=== PATIENT | female | born 1985 | race American Indian/Alaskan Native ===

== ENCOUNTER 2016-11-21 12:13 | Outpatient (CLI) | payer BC, MEDICAID ==
--- NOTE | 2016-11-21 13:19 | XRay Report ---
AP CHEST: HISTORY: Dyspnea, orthopnea AP view of the chest demonstrates a normal mediastinal and cardiac contour with clear lungs and normal bony and soft tissue structures. IMPRESSION: Unremarkable AP chest.
== END 2016-11-21 12:14 | disposition home or self-care (01) ==
LOC: XRAY 12:13
DX: R06.02 Shortness of breath (principal); R06.01 Orthopnea
CPT/HCPCS: 71010

== ENCOUNTER 2017-01-20 06:43 | Inpatient (IN) | payer BC, MEDICAID ==
[2017-01-20] MEDS ORDERED: ePHEDrine SULFATE IV PRN ×2 (09:28→17:22)
[2017-01-20] MEDS ORDERED: MINERAL OIL PO PRN (09:28)
[2017-01-20] MEDS ORDERED: BRETHINE SUB-Q PRN (09:28)
[2017-01-20] MEDS ORDERED: XYLOCAINE 2% INFILTRATI ONE (09:28)
[2017-01-20] MEDS ORDERED: BRETHINE IVP PRN (09:28)
[2017-01-20] MEDS ORDERED: LACTATED RINGERS 1,000 ML ONE (09:34)
[2017-01-20] MEDS ORDERED: PITOCin/NS 20 UNIT/1000ML DRIP 20 UNITS/1,000 ML BAG IV SCH (10:00)
[2017-01-20] MEDS ORDERED: LACTATED RINGERS 1,000 ML IV SCH (10:00)
--- NOTE | 2017-01-20 10:08 | History and Physical Report ---
History of Present Illness Date of examination: 01/20/17 Date of admission: 01/20/17 09:05 Chief complaint: Leaking of clear fluid from vagina since 04:30 today. History of present illness: 31 year old at 39 weeks, 1 day gestation presents to L&D with complaint of leaking of clear fluid from vagina since 04:30 this morning. She states contractions started at 03:30 this morning. She denies vaginal bleeding. She reports active movement. 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 denies: smoking, alcohol abuse, prescription drug abuse, IV drug use - Obstetrical History Expected Date of Delivery: 01/26/17 Actual Gestation: 39 Week(s) 1 Day(s) : 2 Para: 0 Hx # Term Pregnancies: 0 Number of Pregnancies: 0 Spontaneous Abortions: 0 Induced : 1 Number of Living Children: 0 Medications and Allergies Allergies Allergy/AdvReac Type Severity Reaction Status Date / Time No Known Allergies Allergy Verified 08/24/15 06:17 Active Meds: Active Medications Lactated Ringer's (Lactated Ringers) 1,000 mls @ 125 mls/hr IV DIRECT YULISA Oxytocin/Sodium Chloride (Pitocin/Ns 20 Unit/1000ml Drip) 20 units in 1,000 mls @ 125 mls/hr IV DIRECT YULISA Mineral Oil (Mineral Oil) 30 ml PO QHS PRN PRN Reason: Constipation Review of Systems Constitutional: no fever, no chills, no malaise Eyes: deferred Ears, nose, mouth and throat: deferred Cardiovascular: no chest pain, no edema, no shortness of breath, no leg edema Respiratory: no cough Breasts: deferred Gastrointestinal: no nausea, no vomiting, no diarrhea, no constipation Genitourinary: leakage of fluid, contractions, no vaginal bleeding, no vaginal discharge, no genital sores Rectal Exam: deferred Musculoskeletal: low back pain Integumentary: no rash, no lesions Neurological: no headaches - Vital Signs Vital signs: Vital Signs Pulse Pulse Ox 69 97 01/20/17 07:03 01/20/17 07:03 Temp Pulse Resp BP Pulse Ox 97.3 F L 68 18 104/71 97 01/20/17 07:11 01/20/17 09:35 01/20/17 07:11 01/20/17 09:35 01/20/17 07:58 - Physical Exam Breasts: Positive: deferred Cardiovascular: Regular rate, No murmurs Lungs: Positive: Clear to auscultation Abdomen: Positive: normal appearance, soft. Negative: distention, tenderness, guarding Genitourinary (Female): Positive: normal external genitalia. Negative: perineal /vulvar lesions Vagina: Positive: other (Positive pooling, positive fern test) Cervix: Positive: discharge (Clear fluid seen at cervix and in posterior fornix of vagina; fern positive) Uterus: Positive: enlarged. Negative: tender Anus/Rectum: Positive: hemorrhoids Extremities: Positive: normal. Negative: edema - Obstetrical FHR: category 1 Uterine Contraction Monitor Mode: External Cervical Dilatation: 0.5 Cervical Effacement Percentage: 60 station: -1 Uterine Contraction Frequency (min): every 2-3 minutes Results All other labs normal. Assessment and Plan at 39 weeks, 1 day gestation. Spontaneous rupture of membranes. GBS negative. Uterine contractions/probable early labor. Plan: Admit patient. Limit vaginal exams. Patient may ambulate. Anticipate .
--- NOTE | 2017-01-20 11:35 | Event Note ---
Date: 01/20/17 Patient reports worsening contractions and requests to have her cervix checked. SVE 290/0. Patient instructed regarding breathing techniques to cope with contractions. Contractions are every 2-3 minutes. Uterus palpates soft between contractions. Amniotic fluid remains clear. Category 1 heart rate tracing. Maternal VSS.
[2017-01-20 12:35] LABS: Basophils % (Auto) 0.5 % (0.0-1.8); Eosinophils % (Auto) 0.4 % (0.0-4.3); Hematocrit 39.8 % (30.3-42.9); Hemoglobin 12.9 gm/dl (10.1-14.3); Mean Corpuscular HGB Conc 32 % (30-34); Mean Corpuscular Hemoglobin 31 pg (28-32); Mean Corpuscular Volume 96 fl (79-97); Platelet Count 180 K/mm3 (140-440); Red Blood Count 4.13 M/mm3 (3.65-5.03); Red Cell Distribution Width 13.5 % (13.2-15.2); White Blood Count 13.5 K/mm3 (4.5-11.0)
[2017-01-20] MEDS ORDERED: PITOCin/NS 30 UNIT/500ML 30,000 MILLIUNITS/500 ML BAG IV ONE (14:30)
--- NOTE | 2017-01-20 14:52 | Event Note ---
Date: 01/20/17 Discussed with patient risks and benefits of Pitocin augmentation of labor. Will augment labor with Pitocin. Reassuring heart rate tracing.
[2017-01-20] MEDS ORDERED: SUBLIMAZE IV ONE (15:10)
[2017-01-20] MEDS ORDERED: PITOCin/NS 30 UNIT/500ML 30 UNITS/500 ML BAG IV SCH (16:09)
[2017-01-20] MEDS ORDERED: ePHEDrine SULFATE ONE (16:42)
[2017-01-20] MEDS ORDERED: NARCAN 2 MG/2 ML IV PRN (17:22)
--- NOTE | 2017-01-20 17:22 | Anesthesia Consultation ---
Anesthesia Consult and Med Hx Date of service: 01/20/17 - Airway Anesthetic Teeth Evaluation: Good ROM Head & Neck: Adequate Mental/Hyoid Distance: Adequate Mallampati Class: Class II Intubation Access Assessment: Probably Good - Pulmonary Exam CTA: Yes - Cardiac Exam Cardiac Exam: RRR - Pre-Operative Health Status ASA Pre-Surgery Classification: ASA2 Proposed Anesthetic Plan: Epidural - Pulmonary Hx Asthma: No COPD: No Hx Pneumonia: No - Cardiovascular System Hx Hypertension: No - Central Nervous System Hx Seizures: No Hx Psychiatric Problems: No - Endocrine Hx Renal Disease: No Hx End Stage Renal Disease: No Hx Hypothyroidism: No Hx Hyperthyroidism: No - Hematic Hx Anemia: Yes Hx Sickle Cell Disease: No - Other Systems Hx Alcohol Use: No
[2017-01-20] MEDS ORDERED: fentaNYL-BUPIV 2 MCG/ML-0.125% 200 MCG/100 ML BAG EPIDURAL SCH (18:00)
--- NOTE | 2017-01-20 18:28 | Event Note ---
Date: 01/20/17 Pitocin turned off at 18:05 due to a few late appearing heart rate decelerations noted per monitor. Pitocin had been at 4 milliunits per minute. Now off. Patient positioned in left lateral position and O2 applied per face mask. SVE C/C/+1. Will expedite delivery.
[2017-01-20] MEDS ORDERED: TYLENOL PO ONE (20:19)
[2017-01-20] MEDS ORDERED: POLYCILLIN/NS 2 GM/100 ML 2 GM/100 ML BAG IV ONE (20:20)
[2017-01-20] MEDS ORDERED: TYLENOL PO PRN (22:42)
[2017-01-20] MEDS ORDERED: LANSINOH TP PRN ×2 (22:42)
[2017-01-20] MEDS ORDERED: MILK OF MAGNESIA PO PRN (22:42)
[2017-01-20] MEDS ORDERED: NORCO 5/325 PO ONE (22:55)
--- NOTE | 2017-01-20 22:56 | Procedure Note ---
OB Delivery Note - Delivery Date of Delivery: 01/20/17 Surgeon: SEAN SNIDER Estimated blood loss: other (250 cc) - Vaginal Delivery position: OA Delivery augmentation: pitocin Delivery monitor: external uterine Delivery placenta: spontaneous Delivery cord: 3 umbilical vessels Episiotomy: none Delivery laceration: 2nd degree Delivery comments: Spontaneous vaginal delivery of liveborn male over 2nd degree perineal laceration at 2114. Epidural anesthsia. Inant weight 6 lbs 2 oz. Apgars 8/9. Spontaneous delivery of inact placenta and membranes by elam mechanism. EBL 300 cc. Fundus firm and midline. 2nd degree perineal laceration repaired with 2- o vicrl in usual sterile manner. Mother and baby are stable in birthing room. Mom plans to breastfeed.
[2017-01-20] MEDS ORDERED: SODIUM CHLORIDE FLUSH SYRINGE 10 ML IV PRN (23:00)
[2017-01-21] MEDS: MOTRIN PO SCH ×4 (00:50→23:41)
[2017-01-21] MEDS: NORCO 5/325 PO PRN ×3 (05:16→16:10)
[2017-01-21] MEDS: TUCKS PAD TP PRN (05:17)
--- NOTE | 2017-01-21 10:03 | Progress Note ---
Assessment and Plan A: day 1 S/P . P: Plan for discharge tomorrow. Subjective - Subjective Date of service: 01/21/17 Principal diagnosis: day 1 S/P Interval history: Doing well. and bottlefeeding. Tolerating a regular diet; no nausea or vomiting. Ambulating well and voiding without difficulty. Patient denies headache, abdominal pain, pelvic pain, heavy vaginal bleeding, or clots. Patient reports: appetite normal, voiding normally, pain well controlled, ambulating normally [place]: doing well Objective - Vital Signs Latest vital signs: Vital Signs Temp Pulse Resp BP Pulse Ox 01/21/17 08:30 98.4 F 89 20 99/54 01/21/17 04:30 98.2 F 74 18 113/56 01/20/17 23:50 99.2 F 72 18 118/61 01/20/17 23:22 79 97 01/20/17 23:17 91 H 97 01/20/17 23:12 75 97 01/20/17 23:11 14 01/20/17 23:07 73 98 01/20/17 23:02 82 96 01/20/17 22:59 76 113/74 01/20/17 22:57 78 97 01/20/17 22:52 68 97 01/20/17 22:47 67 98 01/20/17 22:45 98.6 F 71 14 112/65 98 01/20/17 22:44 67 112/65 01/20/17 22:42 77 97 01/20/17 22:31 75 92 01/20/17 22:27 69 99 01/20/17 22:22 78 98 01/20/17 22:17 69 98 01/20/17 22:14 71 105/58 01/20/17 22:12 70 98 01/20/17 22:07 76 99 01/20/17 22:04 72 88 01/20/17 22:02 72 99 01/20/17 21:58 70 110/58 01/20/17 21:57 68 97 01/20/17 21:52 73 97 01/20/17 21:47 74 97 01/20/17 21:43 74 103/58 01/20/17 21:42 73 97 01/20/17 21:37 78 98 01/20/17 21:32 79 98 01/20/17 21:29 75 104/57 17 21:27 79 97 17 21:26 83 L 01/20/17 21:06 80 L 01/20/17 20:59 87 118/57 01/20/17 20:43 142 H 102/58 17 20:38 86 91 17 20:28 102 H 112/66 01/20/17 20:20 92 01/20/17 20:14 83 121/56 01/20/17 20:13 100.1 F H 83 12 121/56 98 01/20/17 20:07 37 L 0 L 01/20/17 20:06 73 81 L 01/20/17 20:02 60 81 L 01/20/17 19:59 93 H 116/59 01/20/17 19:57 101 H 99 01/20/17 19:52 102 H 98 01/20/17 19:47 96 H 98 01/20/17 19:43 107 H 119/60 01/20/17 19:42 91 H 99 01/20/17 19:37 79 100 01/20/17 19:32 78 100 17 19:29 76 125/58 17 19:27 76 100 17 19:22 79 100 01/20/17 19:17 75 100 01/20/17 19:16 99.7 F H 75 16 127/59 98 01/20/17 19:14 71 127/59 17 19:12 76 117/67 98 01/20/17 19:00 74 100 17 18:58 71 105/57 17 18:55 64 100 17 18:50 62 100 17 18:45 65 100 17 18:43 62 106/58 17 18:40 85 100 17 18:35 97 H 100 17 18:30 75 100 17 18:28 80 101/57 17 18:25 68 100 17 18:20 76 100 17 18:15 65 98 17 18:13 65 99/53 17 18:10 72 99 01/20/17 18:05 72 99 01/20/17 18:04 68 89 01/20/17 18:00 74 98 01/20/17 17:55 72 99 01/20/17 17:50 69 99 01/20/17 17:45 69 96 01/20/17 17:42 74 111/60 01/20/17 17:37 67 110/56 01/20/17 17:34 76 99 01/20/17 17:32 80 109/56 01/20/17 17:28 70 109/57 01/20/17 17:21 71 111/65 01/20/17 17:19 71 111/62 01/20/17 17:17 69 105/63 01/20/17 17:16 71 108/57 01/20/17 17:14 72 127/60 01/20/17 17:11 85 116/56 01/20/17 17:10 72 107/52 01/20/17 17:07 82 106/57 01/20/17 16:57 68 117/58 01/20/17 16:43 76 117/69 01/20/17 16:27 65 119/58 01/20/17 16:13 68 132/62 01/20/17 15:58 70 117/66 01/20/17 15:42 67 109/59 01/20/17 15:30 97.8 F 69 18 111/67 01/20/17 15:28 69 111/67 01/20/17 15:13 82 118/74 01/20/17 14:57 69 113/63 01/20/17 14:42 77 113/59 01/20/17 14:27 73 119/61 01/20/17 13:45 98.0 F 65 18 111/72 01/20/17 11:30 97.6 F 65 18 111/72 01/20/17 10:04 65 111/72 Intake and Output 01/20/17 01/21/17 01/21/17 22:59 06:59 14:59 Intake Total 1360 120 120 Output Total 600 800 Balance 1360 -480 -680 Intake: IV 1300 Lactated Ringers 1,000 ml 700 @ 125 mls/hr IV DIRECT YULISA Rx#:[id number] PITOCin/NS 20 UNIT/1000ML 300 DRIP 20 units In 1,000 ml @ 125 mls/hr IV DIRECT [facility] Rx#:[id number] PITOCin/NS 30 UNIT/500ML 200 30 units In 500 ml @ 2 MILLIUNITS/MIN 2 mls/hr IV TITR [facility] Rx#:[id number] POLYCILLIN/NS 2 GM/100 ML 100 2 gm In 100 ml @ 100 mls /hr IV ONCE ONE Rx#: [id number] Oral 60 120 120 Output: Urine 600 800 Void 600 800 Other: Total, Intake Amount 60 120 120 Total, Output Amount 600 800 Estimated Blood Loss 250 - Exam Breasts: Present: deferred Cardiovascular: Present: Regular rate, No murmurs Lungs: Present: Clear to auscultation Abdomen: Present: normal appearance, soft. Absent: distention, tenderness, guarding Uterus: Present: normal, firm, fundal height below umbilicus Extremities: Present: normal. Absent: edema - Labs Labs: Abnormal lab results 01/20/17 Range/Units 11:00 WBC 13.5 H (4.5-11.0) K/mm3 Lymph % (Auto) 10.8 L (13.4-35.0) % [place] % (Auto) 8.2 H (0.0-7.3) % [place] # 1.1 H (0.0-0.8) K/mm3 Seg Neutrophils % 80.1 H (40.0-70.0) % Seg Neutrophils # 10.8 H (1.8-7.7) K/mm3
[2017-01-21 11:11] LABS: Hematocrit 30.1 % (30.3-42.9); Hemoglobin 9.9 gm/dl (10.1-14.3)
[2017-01-21] MEDS: PRENATAL VITAMIN PO SCH (15:42)
[2017-01-21] MEDS: COLACE PO SCH ×2 (15:42→23:50)
[2017-01-22] MEDS: MOTRIN PO SCH ×2 (05:31→12:58)
[2017-01-22] MEDS ORDERED: BOOSTRIX IM ONE (06:00)
[2017-01-22] MEDS: TUCKS PAD TP PRN (08:39)
--- NOTE | 2017-01-22 09:27 | Progress Note ---
Assessment and Plan A; PPD #2 - stable P; Discharge home today Subjective - Subjective Date of service: 01/22/17 Principal diagnosis: day 2 S/P Patient reports: appetite normal [place]: doing well Objective - Vital Signs Latest vital signs: Vital Signs Temp Pulse Resp BP 01/22/17 07:47 98.5 F 74 20 96/60 01/22/17 00:45 98.5 F 74 20 101/55 01/21/17 18:16 18 01/21/17 16:34 98.7 F 83 20 107/61 01/21/17 16:10 18 01/21/17 12:40 98.6 F 76 20 95/58 Intake and Output 01/21/17 01/22/17 01/22/17 22:59 06:59 14:59 Intake Total 420 240 Balance 420 240 Intake: Oral 240 Intake, Free Water 180 240 Other: Total, Intake Amount 240 # Voids Void 1 1 - Exam Breasts: Present: deferred Cardiovascular: Present: Regular rate Lungs: Present: Clear to auscultation Abdomen: Present: soft Vulva: both: normal Uterus: Present: fundal height below umbilicus Deep Tendon Reflex Grade: Normal +2 - Labs Labs: Abnormal lab results 01/21/17 Range/Units 10:45 Hgb 9.9 L D (10.1-14.3) gm/dl Hct 30.1 L D (30.3-42.9) %
--- NOTE | 2017-01-22 09:28 | Discharge Summary ---
Providers - Providers Date of Admission: 01/20/17 09:05 Date of discharge: 01/22/17 Attending physician: KELBY HYDE MD Primary care physician: KELBY HYDE MD Hospitalization Reason for admission: active labor Delivery: Laceration: 2nd degree Other procedures: none complications: none Discharge diagnosis: IUP at term delivered [place] baby: male Condition at discharge: Good Disposition: DC-01 TO HOME OR SELFCARE Plan - Provider Discharge Summary Activity: routine, no sex for 6 weeks, no strenuous exercise Diet: routine Instructions: routine Additional instructions: [] Smoking cessation referral if applicable(refer to patient education folder for contact #) [] Refer to [facility] Booklet Call your doctor immediately for: * Fever > 100.5 * Heavy vaginal bleeding ( >1 pad per hour) * Severe persistent headache * Shortness of breath * Reddened, hot, painful area to leg or breast * Drainage or odor from incision. * Keep incision clean and dry at all times and follow doctor's instructions regarding bathing/showering - Follow up plan Follow up: [facility] [Provider Group] - 6 Weeks
[2017-01-22] MEDS ORDERED: FEOSOL PO SCH (10:00)
[2017-01-22] MEDS: COLACE PO SCH (10:38)
[2017-01-22] MEDS: PRENATAL VITAMIN PO SCH (10:39)
[2017-01-22 15:05] VITALS: BP 100/80
== END 2017-01-22 13:35 | disposition home or self-care (01) | DRG 775 ==
LOC: TRG 06:43 → LD 09:05 → OB 23:52
PROVIDERS: ADMIT Obstetrics & Gynecology; ATTEND Obstetrics & Gynecology
PROC: 10E0XZZ Delivery of Products of Conception, External Approach (ICD-10-PCS; principal; 2017-01-20)
PROC: 0KQM0ZZ Repair Perineum Muscle, Open Approach (ICD-10-PCS; 2017-01-20)
PROC: 00HU33Z Insertion of Infusion Device into Spinal Canal, Percutaneous Approach (ICD-10-PCS; 2017-01-20)
PROC: 3E0R3CZ (ICD-10-PCS; 2017-01-20)
DX: O42.02 Full-term premature rupture of membranes, onset of labor within 24 hours of rupture (principal); O70.1 Second degree perineal laceration during delivery; Z37.0 Single live birth; Z3A.39 39 weeks gestation of pregnancy
CPT/HCPCS: 36415; 85014; 85018; 85025; 86592; 86850; 86900; 86901; 88307; 90471; 90715; 99211; G0463; J0290; J2590; J3010; J7120

== ENCOUNTER 2019-06-28 04:13 | Emergency (ER) | payer BC, MEDICAID ==
[2019-06-28 04:29] VITALS: BP 105/78
[2019-06-28 05:05] LABS: Basophils % (Auto) 0.5 % (0.0-1.8); Eosinophils # (Auto) 0.1 K/mm3 (0.0-0.4); Eosinophils % (Auto) 1.3 % (0.0-4.3); Hemoglobin 12.6 gm/dl (10.1-14.3); Lymphocytes # (Auto) 1.4 K/mm3 (1.2-5.4); Lymphocytes % (Auto) 21.1 % (13.4-35.0); Mean Corpuscular HGB Conc 33 % (30-34); Mean Corpuscular Volume 94 fl (79-97); Monocytes # (Auto) 0.6 K/mm3 (0.0-0.8); Monocytes % (Auto) 9.3 % (0.0-7.3); Platelet Count 161 K/mm3 (140-440); Red Blood Count 4.06 M/mm3 (3.65-5.03)
--- NOTE | 2019-06-28 05:08 | XRay Report ---
CHEST 2 VIEWS INDICATION / CLINICAL INFORMATION: Chest Pain. COMPARISON: None available. FINDINGS: SUPPORT DEVICES: None. HEART / MEDIASTINUM: No significant abnormality. LUNGS / PLEURA: No significant pulmonary or pleural abnormality. .No pneumothorax. ADDITIONAL FINDINGS: No significant additional findings. IMPRESSION: 1. No acute findings. Signer Name: Nelson Dailey MD Signed: 06/28/2019 5:03 AM Workstation Name: [id number]
[2019-06-28 05:29] LABS: BUN/Creatinine Ratio 23; Blood Urea Nitrogen 14 mg/dL (7-17); Calcium 9.1 mg/dL (8.4-10.2); Hemolysis Index 0
== END 2019-06-28 08:59 | disposition left against medical advice (07) ==
LOC: ED 04:13
DX: R06.02 Shortness of breath (principal); Z53.21 Procedure and treatment not carried out due to patient leaving prior to being seen by health care provider
CPT/HCPCS: 36415; 71046; 80048; 84484; 85025; 93005; 93010